=== PATIENT | female | born 1980 | race Caucasian/White ===

== ENCOUNTER 2016-06-22 22:14 | Emergency (ER) | payer SELFPAY ==
[2016-06-22 22:42] VITALS: BP 150/121; PULSE 104; TEMP 98.2; BMI 62.4
[2016-06-22] MEDS ORDERED: ACETAMINOPHEN 325 MG TABLET (FP) PO ONE (22:43)
[2016-06-22] MEDS ORDERED: SODIUM CHLORIDE 1,000 ML IV STA (22:43)
--- NOTE | 2016-06-22 22:53 | PDOC ---
History of Present Illness - General History Source: Patient, Significant Other Exam Limitations: No Limitations - History of Present Illness Initial Comments: 06/22/16 23:10 The patient is a 36 year old female, with a significant past medical history of hypertension and diabetes (recently diagnosed, not on medications), who presents to the emergency department for evaluation s/p a syncopal episode. The patient states that she was in her usual state of health until approximately half an hour prior to presentation to the ED. She reports a moderate tension like headache (not the worst headache of her life) without any associated nausea or vomiting. This evening, the patient reports that she felt thirsty so she stood up to get some water, felt dizzy and syncopized. The patients boyfriend found her and they came to the ED for evaluation. Currently in the ED , the patient reports that her headache has improved, rating it a 4/10 in severity. The patient denies chest pain, palpitations or shortness of breath. The patient denies fever, chills or polyuria. The patients boyfriend is at the bedside. Allergies: None reported. Past Surgical History: None reported. Social History: Non smoker. Denies alcohol or drug use. <Candida Lemus - Last Filed: 06/23/16 01:41> - General History Source: Patient, Family Exam Limitations: No Limitations <Will De - Last Filed: 06/23/16 02:54> <Geneva Castro - Last Filed: 06/23/16 03:16> - General Chief Complaint: Syncope/Near Syncope Stated Complaint: R/O HIGH SUGAR Time Seen by Provider: 06/22/16 22:34 Past History <Candida Lemus - Last Filed: 06/23/16 01:41> - Past Medical History HTN: Yes - Psycho/Social/Smoking Cessation Hx Anxiety: No Suicidal Ideation: No Smoking History: Never smoked Have you smoked in the past 12 months: No Information on smoking cessation initiated: No Hx Alcohol Use: No Drug/Substance Use Hx: No Substance Use Type: None <Will De - Last Filed: 06/23/16 02:54> <Geneva Castro - Last Filed: 06/23/16 03:16> - Past Medical History Allergies/Adverse Reactions: Allergies Allergy/AdvReac Type Severity Reaction Status Date / Time No Known Allergies Allergy Verified 06/22/16 22:31 Home Medications: Ambulatory Orders Amlodipine Besylate [Norvasc -] 10 mg PO DAILY 06/22/16 Benazepril/Hydrochlorothiazide [Benazepril-Hctz 10-12.5 mg Tab] 1 each PO DAILY 06/22/16 Ibuprofen 600 mg PO Q6H PRN #20 tablet 06/23/16 Metformin HCl 500 mg PO BID #28 tablet 06/23/16 Review of Systems - Review of Systems Able to Perform ROS?: Yes Comments:: 06/22/16 23:00 GENERAL/CONSTITUTIONAL: +S/p syncope. No fever or chills. No weakness. HEAD, EYES, EARS, NOSE AND THROAT: No change in vision. No ear pain or discharge. No sore throat. CARDIOVASCULAR: No chest pain or shortness of breath. RESPIRATORY: No cough, wheezing, or hemoptysis. GASTROINTESTINAL: No nausea, vomiting, diarrhea or constipation. GENITOURINARY: No dysuria, frequency, or change in urination. MUSCULOSKELETAL: No joint or muscle swelling or pain. No neck or back pain. SKIN: No rash. NEUROLOGIC: +Headache. No vertigo, loss of consciousness, or change in strength/ sensation. ENDOCRINE: No increased thirst. No abnormal weight change. HEMATOLOGIC/LYMPHATIC: No anemia, easy bleeding, or history of blood clots. ALLERGIC/IMMUNOLOGIC: No hives or skin allergy. <Candida Lemus - Last Filed: 06/23/16 01:41> *Physical Exam - Vital Signs Last Vital Signs Temp Pulse Resp BP Pulse Ox 98.2 F 104 H 19 150/121 100 06/22/16 22:27 06/22/16 22:27 06/22/16 22:27 06/22/16 22:27 06/22/16 22:27 - Physical Exam Comments: 06/22/16 22:55 GENERAL: Awake, alert, and fully oriented, in no acute distress. HEAD: No signs of trauma. EYES: PERRLA, EOMI, sclera anicteric, conjunctiva clear. ENT: Dry mucosa. Auricles normal inspection, hearing grossly normal, nares patent, oropharynx clear without exudates. NECK: Normal ROM, supple, no lymphadenopathy, JVD, or masses. LUNGS: Breath sounds equal, clear to auscultation bilaterally. No wheezes, and no crackles. HEART: Regular rate and rhythm, normal S1 and S2, no murmurs, rubs or gallops. ABDOMEN: Suprapubic tenderness to palpation. Soft, normoactive bowel sounds. No guarding, no rebound. No masses. EXTREMITIES: Normal range of motion, no edema. No clubbing or cyanosis. No cords , erythema, or tenderness. NEUROLOGICAL: Cranial nerves II through XII intact. Normal speech, normal gait. SKIN: Warm, dry, normal turgor, no rashes or lesions noted. <Candida Lemus - Last Filed: 06/23/16 01:41> - Vital Signs Last Vital Signs Temp Pulse Resp BP Pulse Ox 98.2 F 104 H 19 150/121 100 06/22/16 22:27 06/22/16 22:27 06/22/16 22:27 06/22/16 22:27 06/22/16 22:27 <Will De - Last Filed: 06/23/16 02:54> - Vital Signs Last Vital Signs Temp Pulse Resp BP Pulse Ox 98.2 F 104 H 19 150/121 100 06/22/16 22:27 06/22/16 22:27 06/22/16 22:27 06/22/16 22:27 06/22/16 22:27 <Geneva Castro - Last Filed: 06/23/16 03:16> Heart Score/ECG Review #1 ECG reviewed & interpreted by me at: 00:25 06/23/16 00:28 NSR 89, incomplete RBBB, no std/isaiah, T wave flat III, QTC 440 msec, no brugada, no HOCM, no WPW <Will De - Last Filed: 06/23/16 02:54> ED Treatment Course - LABORATORY CBC & Chemistry Diagram: 06/22/16 23:35 06/22/16 23:35 <Candida Lemus - Last Filed: 06/23/16 01:41> - LABORATORY CBC & Chemistry Diagram: 06/22/16 23:35 06/22/16 23:35 <Will De - Last Filed: 06/23/16 02:54> - LABORATORY CBC & Chemistry Diagram: 06/22/16 23:35 06/22/16 23:35 - ADDITIONAL ORDERS Additional order review: Laboratory Results 06/22/16 06/22/16 23:35 23:35 Sodium 137 Potassium 3.5 Chloride 96 L Carbon Dioxide 29 Anion Gap 12 BUN 15 Creatinine 0.9 Creat Clearance w eGFR > 60 Random Glucose 251 H Calcium 9.1 Total Bilirubin 0.4 AST 18 ALT 31 Alkaline Phosphatase 101 Creatine Kinase 85 Troponin I < 0.02 Total Protein 8.1 Albumin 4.0 Serum , Qual Negative Urine Color Straw Urine Appearance Clear Urine pH 7.0 Ur Specific [place] 1.017 Urine Protein 1+ H Urine Glucose (UA) 3+ H Urine Ketones Negative Urine Blood 2+ H Urine Nitrite Negative Urine Bilirubin Negative Urine Urobilinogen Negative Ur Leukocyte Esterase Negative Urine RBC 2 Urine WBC 1 Ur Epithelial Cells Few Urine Bacteria Rare Urine Mucus Rare Acetone, Qual Negative L 06/22/16 23:35 RBC 4.68 MCV 91.2 MCHC 34.8 RDW 12.7 MPV 9.6 Neutrophils % 64.6 Lymphocytes % 28.8 Monocytes % 5.7 Eosinophils % 0.5 Basophils % 0.4 - Medications Given in the ED: ED Medications Discontinued Medications Generic Name Dose Route Start Last Admin Trade Name Freq PRN Reason Stop Dose Admin Acetaminophen 975 mg 06/22/16 22:43 06/22/16 23:33 Tylenol - PO 06/22/16 22:44 975 mg ONCE ONE Administration Sodium Chloride 1,000 mls @ 1,000 mls/hr 06/22/16 22:43 06/22/16 23:33 Normal Saline - IV 06/22/16 23:42 1,000 mls/hr ASDIR STA Administration Sodium Chloride 1,000 mls @ 1,000 mls/hr 06/23/16 00:49 06/23/16 02:58 Normal Saline - IV 06/23/16 01:48 Not Given ASDIR STA Ketorolac Tromethamine 30 mg 06/23/16 01:11 06/23/16 01:17 Toradol Injection - IVPUSH 06/23/16 01:12 30 mg ONCE ONE Administration Metformin HCl 500 mg 06/23/16 01:11 06/23/16 01:17 Glucophage - PO 06/23/16 01:12 500 mg ONCE ONE Administration <Geneva Castro - Last Filed: 06/23/16 03:16> Medical Decision Making - Medical Decision Making 06/22/16 22:46 A portion of this note was documented by scribe services under my direction. I have reviewed the details of the note, within reason, and agree with the documentation with the following case summary and management plan written by me. Patient treated in the ED. Nursing notes are reviewed and incorporated into the medical decision-making. Vital signs reviewed. Peripheral IV access obtained by the nurse, laboratory studies are drawn and sent, reviewed and interpreted by myself. Vital Signs Temp Pulse Resp BP Pulse Ox 98.2 F 104 H 19 150/121 100 06/22/16 22:27 06/22/16 22:27 06/22/16 22:27 06/22/16 22:27 06/22/16 22:27 36 year old female with PMH of HTN and newly diagnosed DM (not on meds) presents with syncope. The patient reports that she was in her usual state of healt his morning. She noted that 30 min prior to arrival, the patient started to feel a moderate generalized tension like headache without any nausea, vomiting or neuro deficits. Not thunderclapping and not worst headache of life. The felt very thirsty and soon lightheaded. Denies polyuria. The patient then felt dizzy and syncopized. Never endorsed chest pain or SOB. Denies palpitations. The patient was found by her boyfriend. The patient reports that her headache is improved without intervention, but she reports feeling generally fatigued. As of note, the patient was diagnosed with DM 2 weeks ago, but has not been taking medications. Differential includes hyperglycemia, DKA, UTI (given suprapubic tenderness), dehydration. Will need to evaluate for potential cardiac etiology for syncope given circumstances. However, with the dizziness, lightheadedness, I suspect that this may potentially be vasovagal. The patient requests if possible to avoid any head CT as she does not want the radiation. She reports that her headache is now mild and her headache was never the biggest issue. She was more concerned about potentially elevated sugars. Will observe the patient, and trial tylenol. If the headache is persistent or worsens, should consider head CT. 06/23/16 02:47 CBC, BMP 06/22/16 23:35 06/22/16 23:35 CMP Sodium 137 mmol/L (136-145) 06/22/16 23:35 Potassium 3.5 mmol/L (3.5-5.1) 06/22/16 23:35 Chloride 96 mmol/L (98-107) L 06/22/16 23:35 Carbon Dioxide 29 mmol/L (21-32) 06/22/16 23:35 Anion Gap 12 (8-16) 06/22/16 23:35 BUN 15 mg/dL (7-18) 06/22/16 23:35 Creatinine 0.9 mg/dL (0.55-1.02) 06/22/16 23:35 Creat Clearance w eGFR > 60 (>60) 06/22/16 23:35 Random Glucose 251 mg/dL (74-106) H 06/22/16 23:35 Calcium 9.1 mg/dL (8.5-10.1) 06/22/16 23:35 Total Bilirubin 0.4 mg/dL (0.2-1.0) 06/22/16 23:35 AST 18 U/L (15-37) 06/22/16 23:35 ALT 31 U/L (12-78) 06/22/16 23:35 Alkaline Phosphatase 101 U/L (45-117) 06/22/16 23:35 Creatine Kinase 85 IU/L (26-192) 06/22/16 23:35 Troponin I < 0.02 ng/ml (0.00-0.05) 06/22/16 23:35 Total Protein 8.1 g/dl (6.4-8.2) 06/22/16 23:35 Albumin 4.0 g/dl (3.4-5.0) 06/22/16 23:35 Serum , Qual Negative 06/22/16 23:35 Urine Test Results Urine Color Straw 06/22/16 23:35 Urine Appearance Clear 06/22/16 23:35 Urine pH 7.0 (5.0-8.0) 06/22/16 23:35 Ur Specific [place] 1.017 (1.001-1.035) 06/22/16 23:35 Urine Protein 1+ (NEGATIVE) H 06/22/16 23:35 Urine Glucose (UA) 3+ (NEGATIVE) H 06/22/16 23:35 Urine Ketones Negative (NEGATIVE) 06/22/16 23:35 Urine Blood 2+ (NEGATIVE) H 06/22/16 23:35 Urine Nitrite Negative (NEGATIVE) 06/22/16 23:35 Urine Bilirubin Negative (NEGATIVE) 06/22/16 23:35 Ur Leukocyte Esterase Negative (NEGATIVE) 06/22/16 23:35 Urine RBC 2 /hpf (0-3) 06/22/16 23:35 Urine WBC 1 /hpf (3-5) 06/22/16 23:35 Ur Epithelial Cells Few /hpf (FEW) 06/22/16 23:35 Urine Bacteria Rare /hpf (NONE SEEN) 06/22/16 23:35 Urine Mucus Rare 06/22/16 23:35 The patient reports feeling better, though with mild lower abd pain. Her headache is resolved. Will defer on head CT at this time. The patient reports that she is a status post appendectomy. Last menstrual period was ~12 days ago. With the lower abd pain, this could've been ovarian cyst. I have very low suspicion for ovarian torsion at this time. 06/23/16 02:48 I will prescribed metformin for the patient and have her follow up with a PMD if her ultrasound demonstrates no dangerous acute pathology. Case signed out to oncoming ED attending Dr. Castro for further management and disposition. <Will De - Last Filed: 06/23/16 02:54> *DC/Admit/Observation/Transfer - Attestations Scribe Attestion: 06/22/16 22:54 Documentation prepared by Candida Lemus, acting as medical assistant secretary for Will De MD. <Candida Lemus - Last Filed: 06/23/16 01:41> <Will De - Last Filed: 06/23/16 02:54> <Geneva Castro - Last Filed: 06/23/16 03:16> Diagnosis at time of Disposition: Syncope Qualifiers: Syncope type: unspecified Qualified Code(s): R55 - Syncope and collapse - Discharge Dispostion Disposition: HOME Condition at time of disposition: Improved - Prescriptions Prescriptions: Ibuprofen 600 mg PO Q6H PRN #20 tablet PRN Reason: Pain Metformin HCl 500 mg PO BID #28 tablet - Referrals Referrals: STAFF,NOT ON [Primary Care Provider] - - Patient Instructions Printed Discharge Instructions: DI for Syncope in Adults (Fainting) Additional Instructions: Please start take 500 mg metformin every 12 hours for your diabetes. Continue to drink plenty of fluids and rest. Follow up with your doctor. Take 600 mg ibuprofen every 6 hours as needed for pain. Bring the copy of the results to your doctor.
[2016-06-22] MEDS ORDERED: ACETAMINOPHEN 325 MG TABLET (FP) ONE (23:16)
[2016-06-23 00:08] LABS: URINE APPEARANCE CLEAR; URINE BILIRUBIN NEGATIVE (NEGATIVE); URINE COLOR STRAW; URINE GLUCOSE (UA) 3+ (NEGATIVE); URINE KETONE NEGATIVE (NEGATIVE); URINE LEUK ESTERASE NEGATIVE (NEGATIVE); URINE NITRITE NEGATIVE (NEGATIVE); URINE UROBILINOGEN NEGATIVE E.U./dl (0.2-1.0)
[2016-06-23 00:12] LABS: URINE BLOOD 2+ (NEGATIVE); URINE PROTEIN 1+ (NEGATIVE)
[2016-06-23 00:14] LABS: URINE BACTERIA RARE /hpf (NONE SEEN); URINE MUCUS RARE; URINE RBC 2 /hpf (0-3); URINE WBC 1 /hpf (3-5)
[2016-06-23 00:23] LABS: BASOPHIL 0.4 % (0-2.0); EOSINOPHIL 0.5 % (0-4.5); MCH 31.7 pg (25.7-33.7); MCHC 34.8 g/dl (32.0-36.0); MEAN CELL VOLUME 91.2 fl (80-96); MEAN PLT VOLUME 9.6 fl (7.5-11.1); NEUTROPHILS 64.6 % (42.8-82.8); PLATELET COUNT 253 K/MM3 (134-434); RDW 12.7 % (11.6-15.6); WHITE BLOOD COUNT 12.5 K/mm3 (4.0-10.0)
[2016-06-23 00:36] LABS: ANION GAP 12 (8-16); BILIRUBIN,TOTAL 0.4 mg/dL (0.2-1.0); CALCIUM 9.1 mg/dL (8.5-10.1); CO2 29 mmol/L (21-32); CREATININE 0.9 mg/dL (0.55-1.02); GLUCOSE,RANDOM 251 mg/dL (74-106); SGOT/AST 18 U/L (15-37); SGPT/ALT 31 U/L (12-78); TOT PROT 8.1 g/dl (6.4-8.2)
[2016-06-23 00:39] LABS: ALK PHOS 101 U/L (45-117); TROPONIN I < 0.02 ng/ml (0.00-0.05)
[2016-06-23] MEDS ORDERED: SODIUM CHLORIDE 1,000 ML IV STA (00:49)
[2016-06-23 00:55] LABS: ACETONE SERUM NEGATIVE (NEGATIVE)
[2016-06-23] MEDS ORDERED: metFORMIN HCL 500 MG TABLET (FP) PO ONE (01:11)
[2016-06-23] MEDS ORDERED: KETOROLAC TROMETHAMINE 30 MG/1 ML VIAL IVPUSH ONE (01:11)
[2016-06-23] MEDS ORDERED: metFORMIN HCL 500 MG TABLET (FP) ONE (01:12)
[2016-06-23] MEDS ORDERED: KETOROLAC TROMETHAMINE 30 MG/1 ML VIAL ONE (01:13)
--- NOTE | 2016-06-25 23:02 | EKG ---
Test Reason : Blood Pressure : / mmHG Vent. Rate : 089 BPM Atrial Rate : 089 BPM P-R Int : 174 ms QRS Dur : 098 ms QT Int : 362 ms P-R-T Axes : 048 -23 031 degrees QTc Int : 440 ms NORMAL SINUS RHYTHM LEFTWARD AXIS INCOMPLETE RIGHT BUNDLE BRANCH BLOCK BORDERLINE ECG NO PREVIOUS ECGS AVAILABLE Confirmed by GURPREET BRUNNER MD ([id number]) on 06/25/2016 11:01:44 PM Referred By: Confirmed By:GURPREET BRUNNER MD
== END 2016-06-23 03:29 | disposition home or self-care (01) ==
LOC: JER 22:14 → SUPCPDRO 22:14 → JER 06-23 03:29
PROC: 3E0337Z Introduction of Electrolytic and Water Balance Substance into Peripheral Vein, Percutaneous Approach (ICD-10-PCS; principal; 2016-06-22)
PROC: 3E0333Z Introduction of Anti-inflammatory into Peripheral Vein, Percutaneous Approach (ICD-10-PCS; 2016-06-22)
DX: R55 Syncope and collapse (principal); E11.9 Type 2 diabetes mellitus without complications; Z79.84 Long term (current) use of oral hypoglycemic drugs
CPT/HCPCS: 36415; 76830-TC; 80053; 81003; 81015; 82009; 82550; 84484; 84703; 85025; 87086; 93005; 93010; 99283-25